=== PATIENT | male | born 1945 | race Caucasian/White ===

== ENCOUNTER 2017-05-28 07:59 | Observation (INO) | payer OTHER ==
[~2017-05-28] VITALS: Ht 172.7 cm; Wt 103.4 kg
--- NOTE | ~2017-05-28 | P ---
[facility] [place] [address] [place] [address] PROCEDURE REPORT Name: SHERLY LAO Room #: 200-I [facility] [place]#: [id number] Admission: 05/28/17 Attend Phys: Wilfredo Gonzalez MD Discharge: Date of : 47 Report #: [id number] THIS REPORT FOR: //name// CC: Gwyn Gonzalez REASON FOR PACEMAKER IMPLANTATION: 1. Sick sinus syndrome. 2. Sinus arrest. 3. Symptomatic bradycardia. PROCEDURES PERFORMED: Include dual chamber pacemaker implantation and lead insertions. CPT codes 00929 and 84784. HISTORY: The patient is a 71-year-old male with history of known coronary artery disease as well as recent diagnosis of severe carotid artery disease who was scheduled to undergo carotid endarterectomy and was noted to have symptomatic bradycardia with sinus arrest with rates down to the 30s. As such, I recommend decreasing his beta yudi and having him wear a monitor, but he continued to have episodes of sinus arrest and bradycardia into the 30s. I therefore recommended dual chamber pacemaker implantation for sick sinus syndrome and to be able to continue on beta blockers due to his coronary artery disease. ANESTHESIA: The patient underwent MAC anesthesia with no anesthesia-related complications. DESCRIPTION OF PROCEDURE: The patient underwent informed consent. We discussed the details of the procedure including the risks, which include but not limited to bleeding, infection, vascular damage, cardiac perforation, pneumothorax. The patient was prepped and draped in a sterile fashion and received IV antibiotics in the form of Ancef and underwent a venogram showing patency of the left axillary vein. Next, I injected 20 mL of lidocaine below the level of left clavicle. Incision was made, pocket was created over the prepectoral fascia and access was obtained twice to the left axillary vein, using the extrathoracic approach with leads positioned using the modified Seldinger technique. The leads were positioned in the right ventricular apex and right atrial appendage, both with adequate pacing and sensing thresholds. The leads were sutured to prepectoral fascia and the device was connected to the leads. The pocket was irrigated with vancomycin and the pocket was closed in 3 layers, surgical glue was placed to the outer skin layer. The pacemaker implanted was a [employer] MRI conditional device, [id number], serial #[id number]. The patient has a history of prior TIAs. The atrial lead was a [employer] model # [id number] 52 cm, serial #[id number]. The RV lead was a [employer] model # [id number] 58 cm, serial #[id number]. The atrial lead demonstrated a P-wave of [address] [address] PROCEDURE REPORT Name: SHERLY LAO Room #: 200-I [facility]..#: [id number] Admission: 05/28/17 Attend Phys: Wilfredo Gonzalez MD Discharge: Date of : 47 Report #: [id number] 2.8 millivolts, pacing impedance of 490 ohms and the pacing threshold 1 volt at 0.4 milliseconds. The RV lead demonstrate R-wave of 9.3 millivolts, pacing impedance of ____ ohms and a pacing threshold of 1 volt at 1 millisecond. The device was programmed to the DDDR 60-130 mode. CONCLUSIONS: 1. Successful implantation of an MRI conditional dual chamber pacemaker. 2. Satisfactory atrial and ventricular pacing and sensing thresholds. By: 1411 13 Wilfredo Gonzalez MD /nt
--- NOTE | ~2017-05-28 | D ---
[facility] [place] [address] DISCHARGE SUMMARY Name: SHERLY LAO Room #: 200-I [facility] [place]#: [id number] Admission: 05/28/17 Attend Phys: Wilfredo Gonzalez MD Discharge: Date of : 47 Report #: [id number] THIS REPORT FOR: //name// CC: Gwyn Gonzalez DISCHARGE DIAGNOSES: 1. Sick sinus syndrome. 2. Symptomatic bradycardia. 3. Coronary artery disease. 4. Peripheral vascular disease with severe carotid artery blockages. HISTORY: The patient is a 72-year-old who was to undergo a carotid endarterectomy at [facility], but was found to have severe sick sinus syndrome with sinus arrest and heart rates in the 30s. I saw him in consultation, decreased his beta-yudi, but on a hall monitor, he was still having episodes of sinus javier, down into the 30s. Given his history of coronary disease, he will require to be on a beta-yudi and therefore, I have recommended dual chamber pacemaker implantation. He does have prior TIAs and therefore, I recommended an MRI compatible device. He underwent successful implantation of a dual chamber [employer] pacemaker that is MRI compatible. The procedure was without complications. HOSPITAL COURSE: He was monitored overnight and did well. Vitals were stable. Physical exam was within normal limits with no hematoma. Heart was regular rate and rhythm and lungs were clear. His telemetry revealed sinus rhythm. His pacemaker interrogation I reviewed, demonstrated normal device function and his chest x-ray showed stable lead position with no pneumothorax. As such, he was deemed stable for discharge home with instructions to follow up in 7-10 days for a site check. Discharge instructions were reviewed. By: [id number] 0903 Wilfredo Gonzalez MD /nt
[2017-05-28 07:44] VITALS: BP 131/72
[2017-05-28] MEDS ORDERED: ASPIR 8181 MG PO (08:02)
[2017-05-28] MEDS ORDERED: PLAVIX 75 MG TA75 M1 PO (08:03)
[2017-05-28] MEDS ORDERED: LIPITOR80 MG PO ×2 (08:03→08:36)
[2017-05-28] MEDS ORDERED: CRANBERRY500 MG PO (08:03)
[2017-05-28] MEDS ORDERED: BENADRYL25 MG PO (08:04)
[2017-05-28] MEDS ORDERED: GABAPENTIN 100100 MG PO (08:04)
[2017-05-28] MEDS ORDERED: TOPROL XL25 MG PO (08:05)
[2017-05-28] MEDS ORDERED: HYZAAR 50-12.51 EACH PO (08:05)
[2017-05-28] MEDS ORDERED: THERAGRAN-M PR1 EAC1 PO (08:06)
[2017-05-28] MEDS ORDERED: PRAVACHOL40 MG PO (08:08)
[2017-05-28 08:51] LABS: ABSOLUTE NEUTROPHILS 5.4 thou/uL (1.4-8.2); BASOPHILS 0.8 % (0.0-2.0); EOSINOPHILS 1.8 % (0.0-3.0); HEMATOCRIT 40.7 % (42.0-52.0); HEMOGLOBIN 13.7 gm/dL (14.0-18.0); LYMPHOCYTES 11.7 % (24.0-44.0); MCHC 33.6 g/dL (28.0-37.0); MCV 92.4 fL (80.0-100.0); MONOCYTES 11.6 % (1.0-8.0); PLATELET COUNT 195 thou/uL (150-400); POLYS 74.1 % (36.0-66.0); RBC 4.41 mil/uL (4.50-6.00); RDW 13.8 % (10.5-14.5); WBC 7.2 thou/uL (4.0-11.0)
[2017-05-28 08:52] LABS: MANUAL DIFF NO
[2017-05-28 09:03] LABS: CALCIUM 8.7 mg/dL (8.5-10.1); CREATININE 1.5 mg/dL (0.7-1.3); POTASSIUM 3.8 mmol/L (3.5-5.1)
[2017-05-28 09:06] LABS: APTT 25.2 Seconds (24.5-32.8); PROTIME 9.3 Seconds (9.3-11.4)
[2017-05-28 09:10] LABS: ALBUMIN 3.4 g/dL (3.4-5.0); TOTAL BILIRUBIN 0.3 mg/dL (<0.1-1.0); TOTAL PROTEIN 7.2 g/dL (6.4-8.2)
[2017-05-28 16:23] VITALS: BP 132/72
[2017-05-28 20:00] VITALS: BP 138/67
[2017-05-29 04:00] VITALS: BP 137/62
[2017-05-29 08:25] VITALS: BP 137/60
[2017-05-29 08:54] VITALS: BP 137/60
[2017-05-29 11:31] VITALS: BP 139/77
== END 2017-05-29 11:37 | disposition home or self-care (01) ==
LOC: CATH 07:59 → 2N 08:18 → CATH 15:34 → ENTRNSPT 05-29 11:23 → EDTRNSPTSTS 05-29 11:26 → 2N 05-29 11:37
PROVIDERS: Internal Medicine Cardiovascular Disease
DX: I49.5 Sick sinus syndrome (principal); I45.5 Other specified heart block; R00.1 Bradycardia, unspecified; I25.10 Atherosclerotic heart disease of native coronary artery without angina pectoris; I73.9 Peripheral vascular disease, unspecified; I65.29 Occlusion and stenosis of unspecified carotid artery; Z86.73 Personal history of transient ischemic attack (TIA), and cerebral infarction without residual deficits
CPT/HCPCS: 62110; 62900; 70005

== ENCOUNTER 2018-04-19 10:00 | Outpatient (CLI) | payer OTHER ==
[~2018-04-19] VITALS: Ht 172.7 cm; Wt 100.2 kg
--- NOTE | ~2018-04-19 | EKG ---
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
--- NOTE | ~2018-04-19 | EKG ---
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
--- NOTE | ~2018-04-19 | D ---
[facility] [place] [address] [address] [place] [address] DISCHARGE SUMMARY Name: SHILOSHERLY AKHTAR Room #: DEP SARA [place]#: [id number] Admission: 04/19/18 Attend Phys: Luis Phoenix MD Discharge: 04/20/18 Date of : 47 Report #: [id number] THIS REPORT FOR: //name// CC: Gwyn Phoenix DATE OF SERVICE: 04/20/2018 FINAL DIAGNOSES: 1. Unstable angina, status post percutaneous coronary intervention. 2. Remote history of myocardial infarction with prior percutaneous coronary intervention. 3. Nonsustained ventricular tachycardia. 4. Permanent pacemaker. 5. Hypertension. 6. Peripheral vascular disease. 7. Hypercholesterolemia. HOSPITAL COURSE: The patient presents for staged angioplasty procedure of the RCA. He has history of CAD with prior stent placement. He was found to have nonsustained VT on interrogation of his pacemaker. His anginal equivalent is dyspnea on exertion. A nuclear stress test revealed ischemia in the inferolateral segment. He had a diagnostic catheterization several weeks ago revealing severe occlusions in the left circumflex and RCA. At that time, he did undergo placement in the proximal left circumflex artery. He returned for this admission for stage angioplasty involving multiple severe occlusions in the RCA. Please see the cardiac catheterization report for full details. He underwent placement of 4 drug-eluting stents into the RCA with AILEEN 3 blood flow as a final result. He tolerated the procedure without any complications. He remained stable today for discharge. FINAL DISPOSITION: Aspirin 81 mg, Plavix 75 mg daily, Neurontin, losartan/HCT one tablet a day, metoprolol 50 mg daily, Lipitor 40 mg daily. He is given instructions for followup in the office. <ELECTRONICALLY SIGNED> By: Luis Phoenix MD 04/22/1837 5 Luis Phoenix MD /nt
--- NOTE | ~2018-04-19 | CATHLAB ---
[facility] [place] [address] [place] [address] INVASIVE PROCEDURE REPORT Name: SHERLY LAO Room #: 202-P [facility]#: [id number] Admission: 04/19/18 Attend Phys: Luis Phoenix MD Discharge: Date of : 47 Date of Service: 04/19/18 1713 Report #: [id number] THIS REPORT FOR: //name// APPROVED REPORT Study performed: 04/19/2018 11:52:04 Patient Details Patient Status: Out-Patient Room #: The patient is a 72 year-old male Event Personnel Luis Phoenix Knitted Cloth Examiner, Kathy CorralR, V BELT SKIVER Monitor, Donovan Anderson RN, Brayan Notrh Scrub Procedures Performed Art Access - R femoral artery* 68551 Initial Mod Sed Same Phys/QHP Gr5y 464384 72937 Mod Sed Same Phys/QHP Ea 177824 MONICA Place w/wo Plasty Single RCA 498155 Hemostasis w/ Mynx Coronary Angiography Only [id number] CORANG Indication Arrhythmia, Positive stress test, Chest pain, This is a staged angioplasty procedure. He had a recent cardiac catheterization, please see the report for full details. During the initial diagnostic catheterization, he underwent stent placement to the proximal left circumflex artery. Reinjection today reveals a patent stent in the proximal circumflex. He has multiple lesions in the RCA. Risk Factors HypercholesterolemiaPhysical Activity, Coronary Artery DiseaseHypertension Previous Procedures/Diagnoses Previous PCI Procedure Narrative The RFG^ was infiltrated with 1% Lidocaine subcutaneous anesthesia. A PINNACLE 6FR Sheath #[id number] sheath was inserted into the RFA^. Coronary angiography was performed using coronary diagnostic catheters. The right coronary system was accessed and visualized with a VISTA 6FR JR 4 #[id number] catheter. The left coronary system was accessed and visualized with a 6FR JL4 #998954 catheter. Closure device was deployed with a 6 Fr MYNXGRIP 6/7F #[id number]. The patient tolerated the procedure well and there were no complications [address] [address] INVASIVE PROCEDURE REPORT Name: SHERLY LAO Room #: 202-P [facility]#: [id number] Admission: 04/19/18 Attend Phys: Luis Phoenix MD Discharge: Date of : 47 Date of Service: 04/19/18 1713 Report #: [id number] associated with the procedure. There was no hematoma. Intraoperative Conscious Sedation Sedation start time: 12:17 Case end Time: 13:17 Fentanyl 50 mcg Versed 2 mg Fluoro Time: 22.43 minutes Dose: DAP 33028.00 cGycm2 3148 mGy Contrast Type and Amount: Omnipaque 255 ml Diagnostic Cath Circumflex Patent stent in the proximal left circumflex artery. Right Coronary Right dominant artery with multiple severe occlusions in the proximal, mid and distal segments of the RCA. The lesions in the mid and distal segment of the RCA are restenotic lesions, with prior stent placement. R PDA Patent vessel, with no flow-limiting lesions. RPLV Patent vessel, with no flow-limiting lesions. Hemodynamics The aortic pressure is 166/70 mmHg with a mean of 106 mmHg. PCI Technique Lesion Anticoagulation was achieved with Angiomax. Patient was preloaded with Plavix. Percutaneous coronary intervention was performed on the proximal right coronary artery. The lesion stenosis prior to intervention was 85% with AILEEN 3 flow. A VISTA 6FR JR 4 #[id number] Guide Catheter was used to engage the ostium. A Luge Wire .014 x 182CM #[id number] Interventional Guidewire was used to cross the lesion. BALLOON DILATION A Balloon catheter Euphora RX 2.5 x 10 #[id number] was inserted and inflated up to 12.00atm for 15seconds. Additional Inflation: 12.00atm for 13seconds. STENT DEPLOYMENT A drug-eluting stent RESOLUTE KIARA RX 3.0 X 15 #[id number] was inserted and inflated up to 14.00atm for 20seconds. An additional 3.0 mm resolute kiara stent was placed just distal to the first stent. POST STENT DEPLOYMENT BALLOON DILATION A Balloon catheter TREK NC RX 3.25 X 12 #[id number] was inserted and inflated up to 20.00atm for 17seconds. Additional Inflation: 20.00atm for 11seconds. [facility] [address] [place] [address] INVASIVE PROCEDURE REPORT Name: SHERLY LAO Room #: 202-P [facility].#: [id number] Admission: 04/19/18 Attend Phys: Luis Phoenix MD Discharge: Date of : 47 Date of Service: 04/19/18 1713 Report #: [id number] Final angiography reveals 0 % stenosis with AILEEN 3 flow. PCI Technique Lesion 2 Percutaneous Coronary Intervention was performed on the distal right coronary artery. Percutaneous coronary intervention was performed on the distal right coronary artery. The lesion stenosis prior to intervention was 75% with AILEEN 3 flow. A VISTA 6FR JR 4 #[id number] Guide Catheter was used to engage the ostium. A Luge Wire .014 x 182CM #[id number] Interventional Guidewire was used to cross the lesion. Balloon Dilation A Balloon catheter Euphora RX 2.5 x 10 #[id number] was inserted and inflated up to 12.00atm for 12seconds. Mid-distal lesion dilated with 2.5 x 10 Euphora RX for 4 inflations: 1.)8 tima for 14 sec; 2.)8 tima for 13 sec; 3.)10 tima for 17 sec; 4.)14 tima for 16 sec Stent Deployment A drug-eluting stent RESOLUTE KIARA RX 2.75 X 8 #[id number] was inserted and inflated up to 16.00atm for 23seconds. Mid-distal lesion dilated with 3.0 x 12 Resolute Kiara MONICA for 1 inflation: 18 tima for 36 sec Post Stent Deployment Balloon Dilation A Balloon catheter TREK NC RX 3.0 X 8 #[id number] was inserted and inflated up to 20.00atm for 25seconds. Mid-distal lesion post dilated with 3.25 x 12 NC Trek RX for 1 inflation: 18 tima for 21 sec Final angiography reveals 5 % stenosis with AILEEN 3 flow. PCI Technique Lesion 3 Percutaneous Coronary Intervention was performed on the mid right coronary artery. Percutaneous coronary intervention was performed on the mid right coronary artery. The lesion stenosis prior to intervention was 95% with AILEEN 3 flow. A VISTA 6FR JR 4 #[id number] Guide Catheter was used to engage the ostium. A Luge Wire .014 x 182CM #[id number] Interventional Guidewire was used to cross the lesion. Balloon Dilation A Balloon catheter Euphora RX 2.5 x 10 #[id number] was inserted and inflated up to 12.00atm for 18seconds. Stent Deployment A drug-eluting stent RESOLUTE KIARA RX 3.0 X 15 #[id number] was inserted [facility] [place] [address] INVASIVE PROCEDURE REPORT Name: SHERLY LAO Room #: 202-P [facility]#: [id number] Admission: 04/19/18 Attend Phys: Luis Phoenix MD Discharge: Date of : 47 Date of Service: 04/19/181712 Report #: [id number] and inflated up to 12.00atm for 18seconds. Post Stent Deployment Balloon Dilation A Balloon catheter TREK NC RX 3.25 X 12 #[id number] was inserted and inflated up to 20.00atm for 10seconds. Final angiography reveals 5 % stenosis with AILEEN 3 flow. Conclusion 1. Successful insertion of 4 drug-eluting stents into the proximal, mid and distal segments of the RCA. The patient tolerated the procedure without any complications in the clinical laboratory director. 2. Patent stent in the proximal left circumflex artery. 3. Recommend dual antiplatelet therapy. 4. Recommend aggressive risk factor management. <ELECTRONICALLY SIGNED> By: Luis Phoenix MD 04/19/181712 12 12 Luis Phoenix MD /JULIOCESAR
[~2018-04-19 10:00] MED LIST: ASPIR 8181 MG PO; ATORVASTATIN CA80 MG PO; BENADRYL25 MG PO; CALCIUM 500 +1 EAC5 PO; CRANBERRY500 MG PO; EFFIENT10 MG PO; GABAPENTIN 100100 MG PO; HYZAAR 50-12.51 EACH PO; LIPITOR80 MG PO; PAXIL10 MG PO; PLAVIX 75 MG TA75 M1 PO; POTASSIUM99 M1 PO; PRAVACHOL40 MG PO; THERAGRAN-M PR1 EAC1 PO; TOPROL XL100 MG PO; TOPROL XL25 MG PO; UNICOMPLEX M TA1 TA1 PO; VITAMIN D1000 UNI1 PO
[2018-04-19 10:12] VITALS: BP 132/66
[2018-04-19 10:47] LABS: MCH 31.7 pg (26.0-34.0); MCHC 34.2 g/dL (28.0-37.0); MCV 92.8 fL (80.0-100.0); RBC 4.42 mil/uL (4.50-6.00); RDW 13.6 % (10.5-14.5); WBC 7.6 thou/uL (4.0-11.0)
[2018-04-19] MEDS ORDERED: PLAVIX 75 MG TA75 M1 PO (10:56)
[2018-04-19 11:08] LABS: CALCIUM 9.3 mg/dL (8.5-10.1); CREATININE 1.2 mg/dL (0.7-1.3); POTASSIUM 3.6 mmol/L (3.5-5.1)
[2018-04-19 13:20] VITALS: BP 136/71
[2018-04-19 23:22] VITALS: BP 160/74
[2018-04-20 03:56] VITALS: BP 140/72
[2018-04-20 04:15] LABS: CALCIUM 8.9 mg/dL (8.5-10.1); POTASSIUM 3.5 mmol/L (3.5-5.1); TOTAL BILIRUBIN 0.5 mg/dL (<0.1-1.0)
[2018-04-20 04:17] LABS: TROPONIN-I 1.87 ng/mL (<0.06)
[2018-04-20 07:25] VITALS: BP 149/77
[2018-04-20 07:50] LABS: HEMOGLOBIN 14.7 gm/dL (14.0-18.0); MCH 32.2 pg (26.0-34.0); RBC 4.57 mil/uL (4.50-6.00); RDW 13.4 % (10.5-14.5); WBC 10.6 thou/uL (4.0-11.0)
[2018-04-20 09:28] VITALS: BP 149/77
== END 2018-04-20 09:37 | disposition home or self-care (01) ==
LOC: CATH 10:00 → 2N 15:16 → CATH 16:12 → ENTRNSPT 04-20 09:36 → CATH 04-20 09:37
PROVIDERS: Internal Medicine Cardiovascular Disease
DX: I25.10 Atherosclerotic heart disease of native coronary artery without angina pectoris (principal); I10 Essential (primary) hypertension; I25.2 Old myocardial infarction; I49.5 Sick sinus syndrome; E78.00 Pure hypercholesterolemia, unspecified; N28.9 Disorder of kidney and ureter, unspecified; I73.9 Peripheral vascular disease, unspecified; I65.23 Occlusion and stenosis of bilateral carotid arteries; G62.9 Polyneuropathy, unspecified; M19.90 Unspecified osteoarthritis, unspecified site; Z82.49 Family history of ischemic heart disease and other diseases of the circulatory system; Z86.73 Personal history of transient ischemic attack (TIA), and cerebral infarction without residual deficits; Z79.899 Other long term (current) drug therapy; Z87.891 Personal history of nicotine dependence; Z98.890 Other specified postprocedural states; Z98.52 Vasectomy status; Z95.5 Presence of coronary angioplasty implant and graft
CPT/HCPCS: 10081